=== PATIENT | male | born 1980 ===

== ENCOUNTER 2017-03-18 00:08 | Emergency (ER) | payer SELFPAY ==
[2017-03-18 00:21] VITALS: RESP 18
--- NOTE | 2017-03-18 01:13 | C.PDOC ---
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 Patient states he felt pain, continued working, and then the pain worsened. Patient states he hurts to move, lift his arm, and is feeling pain in his shoulder. Denies numbness, weakness, or injury. Time Seen by Provider: 03/18/17 01:13 Chief Complaint (Nursing): Upper Extremity Problem/Injury History Per: Patient History/Exam Limitations: no limitations Onset/Duration Of Symptoms: Hrs Current Symptoms Are (Timing): Still Present Quality: Sharp Severity: Moderate Pain Scale Rating Of: 5 Exacerbating Factor(s): Strenuous Use Of Affected Area, Movement Recent travel outside of the [place]: No Additional History Per: Patient Past Medical History Reviewed: Historical Data, Nursing Documentation, Vital Signs Vital Signs: Last Vital Signs Temp 97.5 F L 03/18/17 00:16 Pulse 79 03/18/17 00:16 Resp 18 03/18/17 00:16 BP 153/85 H 03/18/17 00:16 Pulse Ox 98 03/18/17 01:50 - Medical History PMH: No Chronic Diseases Surgical History: No Surg Hx Family History: States: No Known Family Hx - Social History Hx Alcohol Use: No Hx Substance Use: No - Immunization History Hx Tetanus Toxoid Vaccination: No Hx Influenza Vaccination: No Hx Pneumococcal Vaccination: No Review Of Systems Constitutional: Negative for: Fever, Chills Musculoskeletal: Positive for: Shoulder Pain (Right) Skin: Negative for: Rash, Lesions Neurological: Negative for: Weakness, Numbness Psych: Positive for: Anxiety Physical Exam - Physical Exam Appears: Non-toxic Skin: Warm, Dry Chest: Symmetrical, No Tenderness Cardiovascular: Rhythm Regular Respiratory: No Rales, No Rhonchi, No Wheezing Extremity: Tenderness (Right shoulder, significantly on anterior humerous head area.), Other (Right shoulder pain with actively passive motion.) Extremity: Bilateral: Normal Color And Temperature Neurological/Psych: Oriented x3, Normal Speech, Normal Cognition Gait: Steady ED Course And Treatment O2 Sat by Pulse Oximetry: 98 (room air) Pulse Ox Interpretation: Normal Progress Note: Motrin PO administered. Reevaluation Time: 02:32 Reassessment Condition: Improved Disposition Counseled Patient/Family Regarding: Studies Performed, Diagnosis, Need For Followup - Disposition Referrals: Jsutin Lisa III, MD [Staff Provider] - Disposition: HOME/ ROUTINE Disposition Time: 01:13 Condition: FAIR Additional Instructions: Must follow up with workman's comp doctor Prescriptions: Naproxen [Naprosyn] 1 tab PO BID PRN #25 tab PRN Reason: Pain Instructions: Shoulder Pain (ED), Rotator Cuff Injury (DC) Forms: Work Excuse - Clinical Impression Clinical Impression: Shoulder pain, acute, Rotator cuff injury - Scribe Statement The provider has reviewed the documentation as recorded by the Scribe Jed Brown All medical record entries made by the Scribe were at my direction and personally dictated by me. I have reviewed the chart and agree that the record accurately reflects my personal performance of the history, physical exam, medical decision making, and the department course for this patient. I have also personally directed, reviewed, and agree with the discharge instructions and disposition.
[2017-03-18] MEDS ORDERED: Oxycodone/Acetaminophen 5/325 mg Tab ONE (02:23)
[2017-03-18] MEDS ORDERED: Oxycodone/Acetaminophen 5/325 mg Tab PO STA (02:31)
[2017-03-18 02:43] VITALS: BP 126/75; PULSE 82; TEMP 98.5; O2SAT 99
== END 2017-03-18 02:43 | disposition home or self-care (01) ==
LOC: C.ER 00:08 → SUPCPDRO 00:08 → C.ER 02:43
DX: M25.511 Pain in right shoulder (principal); S46.001A Unspecified injury of muscle(s) and tendon(s) of the rotator cuff of right shoulder, initial encounter; X50.9XXA Other and unspecified overexertion or strenuous movements or postures, initial encounter; Y92.89 Other specified places as the place of occurrence of the external cause; Y99.0 Civilian activity done for income or pay